=== PATIENT | male | born 1995 | race African-American/Black ===

== ENCOUNTER 2020-05-01 19:34 | Emergency (ER) | payer SELFPAY ==
[2020-05-01] MEDS ORDERED: ONDANSETRON HCL INJ/PF 4 MG/2 ML SDV IV ONE (19:56)
[2020-05-01] MEDS ORDERED: MORPHINE SULFATE 10 MG/ML INJ IV ONE (19:56)
[2020-05-01] MEDS ORDERED: ETOMIDATE INJ/PF 20 MG/10 ML SDV IV ONE (20:15)
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
--- NOTE | 2020-05-01 20:29 | RADIOLOGY REPORT (SQ) ---
2 VIEWS RIGHT SHOULDER HISTORY: Shoulder pain. COMPARISON: None. FINDINGS: There is anterior dislocation of the humeral head with respect to the glenoid. There is suggestion of a Hill-Sachs fracture along the posterolateral humeral head. There is mild surrounding soft tissue swelling. IMPRESSION: Anterior glenohumeral dislocation with possible Hill-Sachs fracture.
--- NOTE | 2020-05-01 21:36 | RADIOLOGY REPORT (SQ) ---
EXAM DESCRIPTION: CLINICAL HISTORY: 25 years Male post-reduction COMPARISON: None. TECHNIQUE: RIGHT shoulder two view FINDINGS: No acute fractures or dislocations identified. No osseous destructive lesions. Acromioclavicular joint appears maintained. IMPRESSION: No acute fracture or dislocation identified.
[2020-05-01 21:58] VITALS: BP 124/74
== END 2020-05-01 22:00 | disposition home or self-care (01) ==
LOC: ER 19:34
DX: S43.014A Anterior dislocation of right humerus, initial encounter (principal); W51.XXXA Accidental striking against or bumped into by another person, initial encounter; Y93.67 Activity, basketball; F17.200 Nicotine dependence, unspecified, uncomplicated
CPT/HCPCS: 99283; 99152; 96374; 96375; 73030; 23650; J2270; J2405; J3490